=== PATIENT | female | born 1965 | race Hispanic/Latino ===

== ENCOUNTER 2023-09-29 09:05 | Day surgery (SDC) | payer OTHER ==
[~2023-09-29] VITALS: Ht 152.4 cm; Wt 62.6 kg
[~2023-09-29 09:05] MED LIST: CHO PO; COQ-1050 MG PO; COZAAR25 MG PO; D325 MCG PO; FISH OIL1000 M1 PO; GLUCOSAMINE PO; TUMERSAID PO
[2023-09-29 11:11] VITALS: BP 127/82
== END 2023-09-29 11:38 | disposition home or self-care (01) | DRG 951 ==
LOC: ENDO 09:05 → ORM 09:45 → ENDO 11:38
PROVIDERS: ATTEND Internal Medicine Gastroenterology
PROC: 0DJD8ZZ Inspection of Lower Intestinal Tract, Via Natural or Artificial Opening Endoscopic (ICD-10-PCS; principal; 2023-09-29)
DX: Z12.11 Encounter for screening for malignant neoplasm of colon (principal); K64.8 Other hemorrhoids; Z80.0 Family history of malignant neoplasm of digestive organs